=== PATIENT | female | born 1960 | race Two or more races ===

== ENCOUNTER → 2019-11-13 | Outpatient (CLI) | payer BC ==
[~2019-11-13] MED LIST: ALBUAER3 IN; ASCO10003 PO; BUDE0.253 IN; BUDE0.5S IN; CHOL1CAP47 PO; FAMO-12 PO; POTA-220 PO; ZINCCAP PO
== END | disposition home or self-care (01) ==
LOC: LAB 10:14
PROVIDERS: ATTEND Nurse Practitioner Family
DX: N39.0 Urinary tract infection, site not specified (principal)
CPT/HCPCS: 87086; 87088

== ENCOUNTER 2019-11-16 21:49 | Inpatient (IN) | payer BC ==
[~2019-11-16] VITALS: Ht 162.6 cm; Wt 100.3 kg
[2019-11-16] MEDS ORDERED: IPRATROPIUM BROM 0.5 MG/2.5ML INH SOL NEB ONE (23:00)
[2019-11-16] MEDS ORDERED: ALBUTEROL SULF 2.5 MG/0.5ML(0.5%) NEB SOLN NEB ONE (23:00)
[2019-11-16 23:29] LABS: Basophils # (auto) 0.1 10 ^3/uL (0-0.2); Basophils % (auto) 0.8 % (0.0-2.0); Eosinophils # (auto) 0.2 10 ^3/uL (0-0.8); Eosinophils % (auto) 2.3 % (0.0-7.0); Hematocrit 49.7 % (36.0-46.0); Hemoglobin 16.7 g/dL (12.2-16.2); Lymphocytes # (auto) 1.6 10 ^3/uL (0.4-5.4); Lymphocytes % (auto) 15.6 % (10.0-50.0); Mean Corpuscular Hemoglobin 30.4 pg (28.0-32.0); Mean Corpuscular Hgb Conc. 33.6 g/dL (32.0-36.0); Mean Corpuscular Volume 90.5 fL (80.0-100.0); Neutrophils # (auto) 7.2 10 ^3/uL (1.6-8.6); Neutrophils % (auto) 71.3 % (37.0-80.0); Nucleated Red Blood Cells % 0.1 %; Platelet Count (auto) 361 10^3/uL (140-450); Red Blood Cells 5.49 10^6/uL (4.0-5.20); Red Cell Distribution Width 13.5 % (11.8-14.3); White Blood Cell 10.1 10^3/uL (4.4-10.8)
[2019-11-16 23:49] LABS: Albumin 3.5 g/dL (3.4-5.0); BUN/Creatinine Ratio 10.4; Calcium 8.4 mg/dL (8.5-10.1)
[2019-11-16 23:51] LABS: Potassium 2.9 mmol/L (3.5-5.1)
[2019-11-16 23:52] LABS: Bilirubin, Total 0.7 mg/dL (0.2-1.0); Total Protein 8.6 g/dL (6.4-8.2)
[2019-11-16 23:54] LABS: Lactic Acid w/Reflex 2.2 mmol/L (0.4-2.0)
[2019-11-17] MEDS ORDERED: methylPREDNISolone SOD SUCC 125 MG/2 ML VL ONE (00:09)
[2019-11-17] MEDS ORDERED: SODIUM CHLORIDE 0.9% 1,000 ML IV ONE (00:15)
[2019-11-17] MEDS ORDERED: methylPREDNISolone SOD SUCC 125 MG/2 ML VL IV ONE (00:15)
[2019-11-17] MEDS ORDERED: levoFLOXacin 750MG 150 ML IV ONE (00:30)
[2019-11-17] MEDS ORDERED: NITROGLYCERIN 0.4 MG SL TAB SL PRN (03:00)
[2019-11-17] MEDS ORDERED: POTASSIUM CHL 20 Meq TABLET PO ONE ×3 (03:00→12:30)
[2019-11-17] MEDS ORDERED: TEMAZEPAM 15 MG CAP PO PRN (03:00)
[2019-11-17] MEDS ORDERED: ACETAMINOPHEN 325 MG TAB PO PRN (03:00)
[2019-11-17] MEDS ORDERED: MORPHINE SULF INJ 2 MG/ML SYRINGE 1ML IV PRN (03:00)
[2019-11-17] MEDS ORDERED: ONDANSETRON HCL 4 MG/2 ML VIAL IV PRN (03:00)
[2019-11-17 05:13] LABS: Magnesium 2.6 mg/dL (1.6-2.6)
[2019-11-17 05:21] LABS: CRP High Sensitivity 2.39 mg/dL (< 0.3)
[2019-11-17] MEDS: ALBUTEROL SULF HFA 90MCG INH 200DOSE IN SCH ×3 (06:00→23:02)
[2019-11-17] MEDS: BUDESONIDE (INHALATION) 180 MCG IH IN SCH ×2 (06:03→23:02)
[2019-11-17] MEDS: LEVOTHYROXINE SODIUM 50 MCG TAB PO SCH (09:15)
[2019-11-17] MEDS: DOXYCYCLINE 100MG/250ML 250 ML IV SCH ×2 (10:00→21:38)
[2019-11-17] MEDS: ASCORBIC ACID 1,000 MG TAB PO SCH (10:00)
[2019-11-17] MEDS: FAMOTIDINE 20 MG TAB PO SCH (10:00)
[2019-11-17] MEDS: DexAMETHasone SOD PHOS 10MG/1ML VIAL INJ IV SCH (10:00)
[2019-11-17] MEDS: CHOLECALCIFEROL (VITD3) 2,000 UNIT CAP PO SCH (10:00)
[2019-11-17] MEDS: ZINC SULFATE 220mg CAP or TAB PO SCH (10:00)
[2019-11-17] MEDS: ENOXAPARIN SOD 40 MG/0.4 ML SYRINGE SC SCH (10:00)
[2019-11-17] MEDS: NOREPINEPHRINE 8 MG/250ML KIT 250 ML IV SCH (11:51)
[2019-11-17] MEDS ORDERED: FUROSEMIDE 20 MG/2 ML VIAL IV ONE (12:30)
[2019-11-17 14:26] LABS: Albumin 3.2 g/dL (3.4-5.0); Potassium 4.1 mmol/L (3.5-5.1)
[2019-11-17 14:29] LABS: BUN/Creatinine Ratio 14.1; Bilirubin, Total 0.4 mg/dL (0.2-1.0); Total Protein 7.3 g/dL (6.4-8.2)
[2019-11-17 16:13] LABS: Urine Bacteria MANY /hpf (None Seen); Urine Blood TRACE /uL (Negative); Urine Mucus FEW (None Seen); Urine Specific Gravity 1.018 (1.001-1.035); Urine WBC 4 /hpf (0 - 5)
[2019-11-17 16:30] LABS: Basophils # (auto) 0 10 ^3/uL (0-0.2); Basophils % (auto) 0.3 % (0.0-2.0); Eosinophils # (auto) 0 10 ^3/uL (0-0.8); Hematocrit 49.9 % (36.0-46.0); Hemoglobin 16.5 g/dL (12.2-16.2); Lymphocytes # (auto) 1.2 10 ^3/uL (0.4-5.4); Lymphocytes % (auto) 10.6 % (10.0-50.0); Mean Corpuscular Hemoglobin 30.6 pg (28.0-32.0); Mean Corpuscular Hgb Conc. 33.1 g/dL (32.0-36.0); Mean Corpuscular Volume 92.4 fL (80.0-100.0); Monocytes # (auto) 0.6 10 ^3/uL (0-1.3); Monocytes % (auto) 5.4 % (0.0-12.0); Neutrophils # (auto) 9.1 10 ^3/uL (1.6-8.6); Neutrophils % (auto) 83.7 % (37.0-80.0); Nucleated Red Blood Cells % 0.2 %; Platelet Count (auto) 450 10^3/uL (140-450); Red Cell Distribution Width 13.7 % (11.8-14.3); White Blood Cell 10.9 10^3/uL (4.4-10.8)
[2019-11-17 23:50] VITALS: BP 103/63
[2019-11-18 00:10] VITALS: BP 103/63
[2019-11-18 02:40] VITALS: BP 127/83
[2019-11-18 05:30] LABS: Basophils # (auto) 0.2 10 ^3/uL (0-0.2); Basophils % (auto) 1.3 % (0.0-2.0); Eosinophils # (auto) 0 10 ^3/uL (0-0.8); Eosinophils % (auto) 0.1 % (0.0-7.0); Hematocrit 45.7 % (36.0-46.0); Hemoglobin 15.2 g/dL (12.2-16.2); Lymphocytes % (auto) 15.4 % (10.0-50.0); Mean Corpuscular Hemoglobin 30.2 pg (28.0-32.0); Mean Corpuscular Hgb Conc. 33.2 g/dL (32.0-36.0); Mean Corpuscular Volume 91.1 fL (80.0-100.0); Monocytes # (auto) 1.5 10 ^3/uL (0-1.3); Monocytes % (auto) 11.9 % (0.0-12.0); Neutrophils # (auto) 9.1 10 ^3/uL (1.6-8.6); Neutrophils % (auto) 71.3 % (37.0-80.0); Nucleated Red Blood Cells % 0.1 %; Platelet Count (auto) 425 10^3/uL (140-450); Red Blood Cells 5.02 10^6/uL (4.0-5.20); Red Cell Distribution Width 13.2 % (11.8-14.3); White Blood Cell 12.7 10^3/uL (4.4-10.8)
[2019-11-18 05:51] LABS: Albumin 3.3 g/dL (3.4-5.0); Calcium 8.2 mg/dL (8.5-10.1); Potassium 3.5 mmol/L (3.5-5.1)
[2019-11-18 05:54] LABS: Bilirubin, Total 0.4 mg/dL (0.2-1.0); Total Protein 7.9 g/dL (6.4-8.2)
[2019-11-18] MEDS: BUDESONIDE (INHALATION) 180 MCG IH IN SCH ×2 (06:51→22:07)
[2019-11-18] MEDS: ALBUTEROL SULF HFA 90MCG INH 200DOSE IN SCH ×3 (06:51→22:07)
--- NOTE | 2019-11-18 07:00 | NUR ---
Pt arrival from ED Pt alert and oriented x4. On 4L NC with even and unlabored respirations. Bed locked, in lowest position, call light within reach, side rails up x2. Will endorse care to day shift RN
--- NOTE | 2019-11-18 07:15 | NUR ---
REPORT PER NIGHT PERSONAL CARER NURSE DID NOT CALL REPORT PRIOR TO BRINGING THE PATIENT TO THE UNIT AT 0655 THIS MORNING.NIGHT RN HAD NOTHING TO REPORT. NIGHT RN TO COMPLETE ASSESSMENT, SKIN ASSESSMENT AND GIVE 0700 MEDICATION. THIS RN WILL COMPLETE THE REMAINDER OF THE ADMISSION. WILL CONTINUE TO MONITOR.
[2019-11-18 08:00] VITALS: BP 128/68
--- NOTE | 2019-11-18 08:00 | NUR ---
Opening Shift Note Assumed care of patient, awake and alert. No S/S of distress/SOB or pain. Instructed on POC and to call for assist PRN, will continue to monitor for changes Q1hr and PRN.
[2019-11-18] MEDS: LEVOTHYROXINE SODIUM 50 MCG TAB PO SCH (08:05)
[2019-11-18] MEDS ORDERED: FUROSEMIDE 40 MG/4 ML VIAL IV SCH (10:00)
[2019-11-18] MEDS: DexAMETHasone SOD PHOS 10MG/1ML VIAL INJ IV SCH (11:50)
[2019-11-18] MEDS: NOREPINEPHRINE 8 MG/250ML KIT 250 ML IV SCH (11:51)
[2019-11-18] MEDS: DOXYCYCLINE 100MG/250ML 250 ML IV SCH ×2 (11:56→21:32)
[2019-11-18] MEDS: ZINC SULFATE 220mg CAP or TAB PO SCH (11:56)
[2019-11-18] MEDS: FAMOTIDINE 20 MG TAB PO SCH (11:56)
[2019-11-18] MEDS: ASCORBIC ACID 1,000 MG TAB PO SCH (11:56)
[2019-11-18] MEDS: CHOLECALCIFEROL (VITD3) 2,000 UNIT CAP PO SCH (11:56)
[2019-11-18] MEDS: ENOXAPARIN SOD 40 MG/0.4 ML SYRINGE SC SCH (11:57)
[2019-11-18 13:16] VITALS: BP 120/52
--- NOTE | 2019-11-18 13:30 | NUR ---
SCENIC ARTIST PATIENT COVID TEST PENDING. PER HOUSE SUP PATIENT WILL NOT RECEIVE ORDERED REMDESIVIR OR CONVALESCENT PLASMA DR ROBERTS ORDERED UNLESS POSITIVE. Addendum: 11/18/19 at 1651 by SAVITA BRIDGES RN [facility] TO NOTIFY DR ROBERTS
[2019-11-18] MEDS: FUROSEMIDE 40 MG/4 ML VIAL IV SCH ×2 (14:36→19:30)
--- NOTE | 2019-11-18 15:25 | NUR ---
IV removal infiltrated IV DC'd from right ac with clean sterile technique, catheter fully intact. Pressure dressing applied to site. Patient tolerated well.
--- NOTE | 2019-11-18 18:21 | NUR ---
IV insertion IV access obtained, via clean sterile technique by inserting 22 gauge catheter at right forearm. IV secured properly. No trauma to site. Patient tolerated well.
--- NOTE | 2019-11-18 19:30 | NUR ---
ENDORSED CARE TO NIGHT RN
[2019-11-18 20:00] VITALS: BP 132/80
[2019-11-18 22:46] VITALS: BP 132/80
[2019-11-19 05:24] VITALS: BP 123/89
[2019-11-19] MEDS: FUROSEMIDE 40 MG/4 ML VIAL IV SCH (06:00)
[2019-11-19] MEDS: ALBUTEROL SULF HFA 90MCG INH 200DOSE IN SCH ×3 (06:12→21:16)
[2019-11-19] MEDS: BUDESONIDE (INHALATION) 180 MCG IH IN SCH ×2 (06:12→21:16)
[2019-11-19 06:28] LABS: Calcium 8.2 mg/dL (8.5-10.1)
[2019-11-19 06:30] LABS: BUN/Creatinine Ratio 26.9
[2019-11-19 06:38] LABS: Potassium 2.7 mmol/L (3.5-5.1)
--- NOTE | 2019-11-19 06:41 | NUR ---
CRITICAL LAB: Per computer lab assistant, potassium is 2.7, Hospitalist paged, awaiting callback.
[2019-11-19] MEDS: LEVOTHYROXINE SODIUM 50 MCG TAB PO SCH (07:03)
[2019-11-19] MEDS ORDERED: POTASSIUM CHL 20 Meq TABLET PO ONE (07:15)
--- NOTE | 2019-11-19 07:15 | NUR ---
Opening Shift Note Assumed care of patient, awake and alert. Oxygen @ 3L NC saturation 96%. No S/S of distress/SOB or pain. Instructed on POC and to call for assist PRN, will continue to monitor for changes Q1hr and PRN.
[2019-11-19 09:00] VITALS: BP 103/67
[2019-11-19] MEDS: DOXYCYCLINE 100MG/250ML 250 ML IV SCH ×2 (11:54→22:30)
[2019-11-19] MEDS: ASCORBIC ACID 1,000 MG TAB PO SCH (11:54)
[2019-11-19] MEDS: FAMOTIDINE 20 MG TAB PO SCH (11:54)
[2019-11-19] MEDS: CHOLECALCIFEROL (VITD3) 2,000 UNIT CAP PO SCH (11:54)
[2019-11-19] MEDS: DexAMETHasone SOD PHOS 10MG/1ML VIAL INJ IV SCH (11:54)
[2019-11-19] MEDS: ZINC SULFATE 220mg CAP or TAB PO SCH (11:54)
[2019-11-19] MEDS: ENOXAPARIN SOD 40 MG/0.4 ML SYRINGE SC SCH (11:55)
[2019-11-19 13:00] VITALS: BP 114/70
--- NOTE | 2019-11-19 14:41 | NUR ---
HOUSE SUP NOTIFIED PATIENT IS POSITIVE CONSENTS FAXED TO IN HOUSE PHARMACY.
--- NOTE | 2019-11-19 14:42 | NUR ---
PHARMACY TO BULLET CORRECT CONSENTS TO THIS RN FOR REMDESIVIR.
[2019-11-19 16:50] VITALS: BP 131/88
[2019-11-19] MEDS ORDERED: REMDESIVIR 200 MG in NS 210ml LOADING DOSE ADULT IV ONE ×2 (17:00→20:15)
--- NOTE | 2019-11-19 18:57 | NUR ---
PER PHARMACY REMDESIVIR WILL BE READY AND SENT TO [facility] AT 8PM WILL ENDORSE TO FORENSICS ANALYST
--- NOTE | 2019-11-19 19:15 | NUR ---
OPENING SHIFT NOTE: Assumed care of patient. Patient awake, alert and oriented x 4. No s/s of SOB or distress, patient denies pain. Bed in lowest locked position with two side rails raised and call stanley within reach. Instructed on POC and encouraged to call for assistance, all questions and concerns addressed, patient verbalize understanding. Will continue to monitor Q1 hr and PRN.
--- NOTE | 2019-11-19 20:00 | NUR ---
IV Inserted left hand 20 gauge IV inserted using clean technique, patient tolerated well.
--- NOTE | 2019-11-19 20:30 | NUR ---
REMDESIVIR STARTED VITALS: BP 117/73, HR 91, TEMP 98.0 F, RR 18, SPO2 95% ON 3L NC, NO S/S OF SOB OR DISTRESS. WILL CONTINUE TO MONITOR
--- NOTE | 2019-11-19 20:45 | NUR ---
REMDESIVIR RUNNING VITALS: BP 113/65, HR 93, TEMP 97.8 F, RR 19, SPO2 94% ON 3L NC. NO S/S OF SOB OR DISTRESS, PATIENT DENIES ANY DISCOMFORT. WILL CONTINUE TO MONITOR.
--- NOTE | 2019-11-19 21:16 | NUR ---
Respiratory note: PT DOES NOT WANT TO WEAR CPAP AT THIS TIME
--- NOTE | 2019-11-19 21:30 | NUR ---
REMDESIVIR FINISHED, IV FLUSHED WITH 30 ML NS. VITAL SIGNS: BP 110/57, HR 87, TEMP 97.4 F, RR 18, SPO2 93% ON 3L NC. NO S/S OF SOB OR DISTRESS, PATIENT DENIES ANY PAIN OR DISCOMFORT. WILL CONTINUE TO MONITOR.
[2019-11-19 22:00] VITALS: BP 110/57
--- NOTE | 2019-11-19 22:45 | NUR ---
IV inserted/ D/C'd Patient complaining of burning in IV while DOXYCYCLINE is running. New 22 gauge IV inserted to left forearm using clean technique. Patient tolerated well. Right forearm IV discontinued, catheter tip intact, pressure dressing applied, patient tolerated well.
[2019-11-20] VITALS (12 sets, daily range): BP systolic 94–152; BP diastolic 49–97
--- NOTE | 2019-11-20 04:25 | NUR ---
Received report from SHAR Andino. Patient is resting in bed with eyes closed with CPAP on and no distress noted.
--- NOTE | 2019-11-20 04:25 | NUR ---
Care endorsed to Zaria MYLES. Patient resting in bed with eyes closed, no s/s of SOB or distress noted.
[2019-11-20] MEDS: ALBUTEROL SULF HFA 90MCG INH 200DOSE IN SCH ×3 (06:16→21:37)
[2019-11-20] MEDS: BUDESONIDE (INHALATION) 180 MCG IH IN SCH ×2 (06:16→21:37)
--- NOTE | 2019-11-20 07:00 | NUR ---
Patient is alert and oriented, no distress noted, on 3LNC saturating at 94%. Patient denies pain
[2019-11-20] MEDS: LEVOTHYROXINE SODIUM 50 MCG TAB PO SCH (07:09)
[2019-11-20 07:33] LABS: Calcium 8.7 mg/dL (8.5-10.1); Potassium 3.6 mmol/L (3.5-5.1)
[2019-11-20] MEDS: DexAMETHasone SOD PHOS 10MG/1ML VIAL INJ IV SCH (10:13)
[2019-11-20] MEDS: FUROSEMIDE 20 MG/2 ML VIAL IV SCH (10:14)
[2019-11-20] MEDS: DOXYCYCLINE 100MG/250ML 250 ML IV SCH ×2 (10:14→21:53)
[2019-11-20] MEDS: ZINC SULFATE 220mg CAP or TAB PO SCH (10:14)
[2019-11-20] MEDS: FAMOTIDINE 20 MG TAB PO SCH (10:14)
[2019-11-20] MEDS: ASCORBIC ACID 1,000 MG TAB PO SCH (10:15)
[2019-11-20] MEDS: CHOLECALCIFEROL (VITD3) 2,000 UNIT CAP PO SCH (10:15)
[2019-11-20] MEDS: ENOXAPARIN SOD 40 MG/0.4 ML SYRINGE SC SCH (10:15)
--- NOTE | 2019-11-20 12:20 | NUR ---
Nutrition Assessment Note please see attached link for complete assessment Est energy needs ABW 78 [id number] kcal (20-23 kcal/kg ABW) Est protein needs: 78-85g (1.0-1.1g/kg ABW) Will reassess prn Addendum: 11/20/19 at [address] Amended: Links added.
--- NOTE | 2019-11-20 13:32 | NUR ---
REGARDING IV INSERTION: IV TO RFA 20 GAUGE INSERTED ON FIRST ATTEMPT. FOLLOWED HOSPITAL POLICY PATIENT TOLERATED WELL. IV TO LFA AND LH DC'D DUE TO INFILTRATION.
--- NOTE | 2019-11-20 13:35 | NUR ---
COVID SWAB OBTAINED AND SENT TO LAB. WALKED OVER BY JOVITA CABRERA.
[2019-11-20] MEDS: REMDESIVIR 100mg in NS 230ml DAILYx4DAYS (NO VENT) IV SCH (17:44)
--- NOTE | 2019-11-20 19:25 | NUR ---
Opening Shift Note Received report from emily Cherry RN. Assumed care of patient, awake and alert. No S/S of distress/SOB or pain. Instructed on POC and to call for assist PRN, will continue to monitor for changes Q1hr and PRN. Bed placed in lowest position and call light within reach.
[2019-11-21] VITALS (9 sets, daily range): BP systolic 100–128; BP diastolic 59–80
[2019-11-21] MEDS: LEVOTHYROXINE SODIUM 50 MCG TAB PO SCH (06:29)
[2019-11-21 06:34] LABS: Basophils # (auto) 0.1 10 ^3/uL (0-0.2); Basophils % (auto) 0.6 % (0.0-2.0); Eosinophils # (auto) 0.1 10 ^3/uL (0-0.8); Eosinophils % (auto) 0.8 % (0.0-7.0); Hemoglobin 13.8 g/dL (12.2-16.2); Lymphocytes # (auto) 2.6 10 ^3/uL (0.4-5.4); Lymphocytes % (auto) 21.8 % (10.0-50.0); Mean Corpuscular Hemoglobin 30.7 pg (28.0-32.0); Mean Corpuscular Hgb Conc. 33.6 g/dL (32.0-36.0); Mean Corpuscular Volume 91.4 fL (80.0-100.0); Monocytes # (auto) 1.1 10 ^3/uL (0-1.3); Monocytes % (auto) 9.2 % (0.0-12.0); Neutrophils # (auto) 8.2 10 ^3/uL (1.6-8.6); Neutrophils % (auto) 67.6 % (37.0-80.0); Nucleated Red Blood Cells % 0.1 %; Platelet Count (auto) 394 10^3/uL (140-450); Red Blood Cells 4.49 10^6/uL (4.0-5.20); Red Cell Distribution Width 13.5 % (11.8-14.3); White Blood Cell 12.1 10^3/uL (4.4-10.8)
[2019-11-21 06:53] LABS: Albumin 3.1 g/dL (3.4-5.0); Calcium 8.9 mg/dL (8.5-10.1); Potassium 3.4 mmol/L (3.5-5.1)
[2019-11-21 06:56] LABS: BUN/Creatinine Ratio 30.5
[2019-11-21 07:04] LABS: Bilirubin, Total 0.4 mg/dL (0.2-1.0); Total Protein 6.9 g/dL (6.4-8.2)
[2019-11-21] MEDS: BUDESONIDE (INHALATION) 180 MCG IH IN SCH ×2 (07:33→22:00)
[2019-11-21] MEDS: ALBUTEROL SULF HFA 90MCG INH 200DOSE IN SCH ×4 (07:33→22:00)
[2019-11-21] MEDS: ZINC SULFATE 220mg CAP or TAB PO SCH (09:21)
[2019-11-21] MEDS: ASCORBIC ACID 1,000 MG TAB PO SCH (09:21)
[2019-11-21] MEDS: FUROSEMIDE 20 MG/2 ML VIAL IV SCH (09:21)
[2019-11-21] MEDS: DexAMETHasone SOD PHOS 10MG/1ML VIAL INJ IV SCH (09:21)
[2019-11-21] MEDS: FAMOTIDINE 20 MG TAB PO SCH (09:21)
[2019-11-21] MEDS: DOXYCYCLINE 100MG/250ML 250 ML IV SCH ×2 (09:21→21:53)
[2019-11-21] MEDS: ENOXAPARIN SOD 40 MG/0.4 ML SYRINGE SC SCH (09:22)
[2019-11-21] MEDS: CHOLECALCIFEROL (VITD3) 2,000 UNIT CAP PO SCH (09:22)
--- NOTE | 2019-11-21 10:27 | NUR ---
Carlos PASCUAL AT BEDSIDE. INFORMED OF PATIENT STATUS, INFORMED OF DECREASING POTASSIUM. RECEIVED NEW ORDERS. SEE EMAR.
[2019-11-21] MEDS ORDERED: POTASSIUM CHL 20 Meq TABLET PO ONE (11:00)
[2019-11-21] MEDS: REMDESIVIR 100mg in NS 230ml DAILYx4DAYS (NO VENT) IV SCH (17:39)
[2019-11-21 17:56] LABS: Urine Bacteria NONE SEEN /hpf (None Seen); Urine Blood Negative /uL (Negative); Urine WBC <1 /hpf (0 - 5)
--- NOTE | 2019-11-21 19:10 | NUR ---
Opening Shift Note Assumed care of patient. Patient is awake, alert, and oriented x 4. No s/s of respiratory distress noted. Patient is on 3 lpm NC with SPO2 at 94% at this time. Patient denies pain. Bed is locked in lowest position, side rails x 2 up, call light is within reach. BiPAP machine at bedside. POC discussed. Patient instructed to call for assistance as needed. Will continue to monitor Q1H and/or PRN.
[2019-11-22] VITALS (9 sets, daily range): BP systolic 105–135; BP diastolic 57–81
--- NOTE | 2019-11-22 00:25 | NUR ---
IV removal IV DC'd due to pain and burning at injection site. Sterile technique used. Catheter fully intact. Pressure dressing applied to site. Patient tolerated procedure well.
[2019-11-22] MEDS: ALBUTEROL SULF HFA 90MCG INH 200DOSE IN SCH ×3 (06:00→21:49)
[2019-11-22] MEDS: LEVOTHYROXINE SODIUM 50 MCG TAB PO SCH (06:54)
[2019-11-22 07:45] LABS: Albumin 3.4 g/dL (3.4-5.0); Calcium 8.8 mg/dL (8.5-10.1); Potassium 3.9 mmol/L (3.5-5.1)
[2019-11-22 07:48] LABS: BUN/Creatinine Ratio 27.8; Bilirubin, Total 0.5 mg/dL (0.2-1.0); Total Protein 7.2 g/dL (6.4-8.2)
--- NOTE | 2019-11-22 10:12 | NUR ---
PATIENT TITRATED DOWN TO 2L NCA. PATIENT DENIES ANY SOB AT THIS TIME. OXYGEN SATURATIONS REASSESSED WITH SATURATIONS AT 93-94%. WILL CONTINUE TO MONITOR.
[2019-11-22] MEDS: FUROSEMIDE 20 MG/2 ML VIAL IV SCH (10:23)
[2019-11-22] MEDS: DexAMETHasone SOD PHOS 10MG/1ML VIAL INJ IV SCH (10:23)
[2019-11-22] MEDS: POTASSIUM CHL 20 Meq TABLET PO SCH (10:23)
[2019-11-22] MEDS: ZINC SULFATE 220mg CAP or TAB PO SCH (10:23)
[2019-11-22] MEDS: FAMOTIDINE 20 MG TAB PO SCH (10:24)
[2019-11-22] MEDS: ENOXAPARIN SOD 40 MG/0.4 ML SYRINGE SC SCH (10:24)
[2019-11-22] MEDS: CHOLECALCIFEROL (VITD3) 2,000 UNIT CAP PO SCH (10:24)
[2019-11-22] MEDS: ASCORBIC ACID 1,000 MG TAB PO SCH (10:24)
[2019-11-22] MEDS: BUDESONIDE (INHALATION) 180 MCG IH IN SCH ×2 (14:41→21:49)
--- NOTE | 2019-11-22 16:01 | NUR ---
SPOKE WITH Carlos PASCUAL REGARDING PATIENT NEGATIVE COVID SWAB. INSTRUCTED TO RESWAB PATIENT AND CONTINUE WITH REMDESIVIR TREATMENT.
--- NOTE | 2019-11-22 17:25 | NUR ---
COVID SWAB COLLECTED AND WALKED UP TO LAB.
[2019-11-22] MEDS: REMDESIVIR 100mg in NS 230ml DAILYx4DAYS (NO VENT) IV SCH (17:58)
--- NOTE | 2019-11-22 19:55 | NUR ---
Opening Shift Note Assumed care of patient. Patient is awake, alert, and oriented x 4. No s/s of respiratory distress, pain, or nausea reported. Respirations are regular and non-labored. PT is on 2 lpm NC with SPO2 at 94% at this time. Bed is locked in lowest position, side rails x 2 up, call light is within reach. Instructed on plan of care and encouraged patient to call for assistance as needed. Will continue to monitor Q1H and/or PRN.
--- NOTE | 2019-11-22 23:21 | NUR ---
Respiratory note: PLACED PT ON CPAP, PT ON CPAP UNIT B7, UNIT CONNECTED TO RED OUTLET AND O2 SOURCE. ALARMS ARE SET AND AUDIBLE AMBU BAG AND MASK AT BEDSIDE. NO BREAKDOWN NOTED PRIOR TO PLACEMENT. WILL NOTIFY RN OF PLACEMENT.
[2019-11-23] VITALS (8 sets, daily range): BP systolic 104–121; BP diastolic 62–73
--- NOTE | 2019-11-23 02:43 | NUR ---
Respiratory note: AT BEDSIDE FOR ROUTINE CPAP CHECK PT COMFORTABLY RESTING. NO CHANGES MADE OR NEEDED AT THIS TIME. NO S/S OF DISTRESS NOTED. RNS AWARE OF PAGER ASSIGNMENT AND AWARE I CAN BE REACHED AT ANY TIME DURING MY SHIFT. WILL CONTINUE TO MONITOR NEEDED.
[2019-11-23 05:42] LABS: Calcium 8.4 mg/dL (8.5-10.1); Potassium 4.1 mmol/L (3.5-5.1)
[2019-11-23 05:48] LABS: Albumin 3.2 g/dL (3.4-5.0); Bilirubin, Total 0.4 mg/dL (0.2-1.0); Total Protein 6.8 g/dL (6.4-8.2)
[2019-11-23] MEDS: ALBUTEROL SULF HFA 90MCG INH 200DOSE IN SCH ×2 (06:15→13:57)
[2019-11-23] MEDS: BUDESONIDE (INHALATION) 180 MCG IH IN SCH (06:15)
--- NOTE | 2019-11-23 06:35 | NUR ---
O2 Patient is on 3.5 LPM O2 via NC with SpO2 92%. respirations are regular. No accessory muscle use. Will continue to monitor.
[2019-11-23] MEDS: LEVOTHYROXINE SODIUM 50 MCG TAB PO SCH (06:47)
[2019-11-23] MEDS: DexAMETHasone SOD PHOS 10MG/1ML VIAL INJ IV SCH (08:58)
[2019-11-23] MEDS: FUROSEMIDE 20 MG/2 ML VIAL IV SCH (08:58)
[2019-11-23] MEDS: CHOLECALCIFEROL (VITD3) 2,000 UNIT CAP PO SCH (08:59)
[2019-11-23] MEDS: FAMOTIDINE 20 MG TAB PO SCH (08:59)
[2019-11-23] MEDS: POTASSIUM CHL 20 Meq TABLET PO SCH (08:59)
[2019-11-23] MEDS: ZINC SULFATE 220mg CAP or TAB PO SCH (08:59)
[2019-11-23] MEDS: ASCORBIC ACID 1,000 MG TAB PO SCH (08:59)
[2019-11-23] MEDS: ENOXAPARIN SOD 40 MG/0.4 ML SYRINGE SC SCH (09:00)
--- NOTE | 2019-11-23 12:10 | NUR ---
PER Carlos NGUYEN TO GIVE REMDESIVIR EARLY FOR DISCHARGE.
--- NOTE | 2019-11-23 12:35 | NUR ---
Nutrition Followup Note Wt 100.3kg Pt is COVID positive in the COVID wing. Pt is with a Regular diet with a good appetite aeb pt with an avg po intake of 97% x 3 days per RN note. Est energy needs ABW 78 [id number] kcal (20-23 kcal/kg ABW) Est protein needs: 78-85g (1.0-1.1g/kg ABW) Will reassess prn Labs: BUN 31H, GLUC 125H, Alb 1.2L, Ca 7.9L BM: Pt with 4 Bms 11/22 per RN note Skin: BS 21 low risk, full details in customer care team coach note PES: Decreased nutrient needs r/t adiposity aeb pt`s high BMI of 38.7 kgm2 Altered nutrition related lab values r/t current chronic medical condition aeb elev BUN hyperglycemia Comments 1)refer to [facility] dietitan on DC 2) continue current plan of care Expected Outcomes/Goals: pt will have improved labs pt will not gain any more wt F/u mod 3-5 days
[2019-11-23] MEDS ORDERED: ZINCCAP PO (13:45)
[2019-11-23] MEDS ORDERED: ALBUAER3 IN (13:45)
[2019-11-23] MEDS ORDERED: BUDE0.5S IN (13:45)
[2019-11-23] MEDS ORDERED: ASCO10003 PO (13:45)
[2019-11-23] MEDS ORDERED: CHOL1CAP47 PO (13:45)
[2019-11-23] MEDS ORDERED: BUDE0.253 IN (13:45)
[2019-11-23] MEDS ORDERED: FAMO-12 PO (13:45)
[2019-11-23] MEDS ORDERED: POTA-220 PO (13:45)
--- NOTE | 2019-11-23 14:00 | NUR ---
Assessment Patient is a 59-year-old female who is alert and oriented. Prior to admission patient lived with her Jina and functioned independently. Per patient she can care for her own ADL's. Patient has a CPAP and nebulizer for home use. Per patient she will return to her prior living arrangements post discharge and her will transport. Patient stated her PCP is under [facility]. Advised patient to follow up with primary doctor. Advised patient there is a social service consult for home oxygen. Informed patient clinical information will be faxed to [facility]. Informed Patient she has a right to participate in all discharge planning. Patient verbalized understanding discharge plan. Faxed clinical information to [facility] requesting for oxygen to be deliver to the front lobby. Informed SHAR Cherry. Addendum: 11/24/19 at 0836 by INOCENCIA DURÁN Amended: Links added.
[2019-11-23] MEDS: REMDESIVIR 100mg in NS 230ml DAILYx4DAYS (NO VENT) IV SCH (15:41)
--- NOTE | 2019-11-23 16:37 | NUR ---
SPOKE TO Carlos ROBERTS. INFORMED OF POTASSIUM ORDER BUT NO LASIX ORDERED. STATED SHE SPOKE TO SATHISH IN PHARMACY AND CALLED IN MEDICATION. SPOKE TO SATHISH IN PHARMACY TO CONFIRM. STATED SHE DID RECIEVE ORDER. WILL FOLLOW THROUGH WITH DISCHARGE.
--- NOTE | 2019-11-23 17:45 | NUR ---
Discharge instructions given as ordered. Encourage to follow up with PMD as instructed. INSTRUCTRED TO TAKE ALL MEDICATIONS PRESCRIBED. INSTRUCTED TO FOLLOW UP WITH PCP DIRECTED AND INSTRUCTED ON HOME OXYGEN USE.All questions and concerns addressed. Patient verbalized understanding. Medication reconciliation form completed and copy given to patient. IV removed with catheter intact, pressure dressing applied, washburn catheter removed. Telemetry unit returned to ICU. Patient taken to vehicle via wheelchair with all personal belongings, accompanied by staff and family member. No distress noted at time of departure.
== END 2019-11-23 17:48 | disposition home or self-care (01) | DRG 177 ==
LOC: ER 21:49 → TELE 21:50 → TELE-E-ADS 11-18 06:40 → TELE-EAST 11-18 18:30
PROVIDERS: ADMIT Nurse Practitioner; ATTEND Internal Medicine
PROC: XW033E5 Introduction of Remdesivir Anti-infective into Peripheral Vein, Percutaneous Approach, New Technology Group 5 (ICD-10-PCS; principal; 2019-11-19)
PROC: 30233K1 Transfusion of Nonautologous Frozen Plasma into Peripheral Vein, Percutaneous Approach (ICD-10-PCS; 2019-11-20)
DX: U07.1 COVID-19 (principal); N17.0 Acute kidney failure with tubular necrosis; J96.01 Acute respiratory failure with hypoxia; J12.89 Other viral pneumonia; E44.1 Mild protein-calorie malnutrition; E87.1 Hypo-osmolality and hyponatremia; J44.0 Chronic obstructive pulmonary disease with (acute) lower respiratory infection; E87.6 Hypokalemia; E03.9 Hypothyroidism, unspecified; E66.01 Morbid (severe) obesity due to excess calories; G47.30 Sleep apnea, unspecified; Z68.38 Body mass index [BMI] 38.0-38.9, adult
CPT/HCPCS: 36415; 71045; 80048; 80053; 81001; 82728; 83605; 83615; 83735; 83880; 84443; 85025; 85379; 86141; 86850; 86870; 86900; 86901; 87040; 87426; 93005; 94640; 94660; 96365; 96366; 96375; G0378; J1100; J1956; J2405; J3490